=== PATIENT | male | born 1955 | race Hispanic/Latino ===

== ENCOUNTER → 2025-05-01 | Outpatient (CLI) | payer OTHER ==
--- NOTE | 2025-05-01 15:23 | HMCIMG ---
US ART IN & VEIN OUT REASON: HYPERTENSION COMPARISON: None TECHNIQUE: Real sonogram was performed. Renal vascular Doppler evaluation was also performed with spectral analysis and color flow imaging. FINDINGS: Right kidney is 10.3 x 5.8 x 5.1 cm, left 10.1 x 4.7 x 4.0 cm. Kidneys are echogenic with mild cortical thinning. There is no evidence of mass or hydronephrosis. There are 2 stones on the left, 6 mm in the lower pole and 7 mm in a middle pole calyx. There is a 1.9 cm complex cyst lower pole right kidney, this has an internal septation. There are no focal solid masses. CT recommended for further evaluation of this lesion. Peak systolic velocity right renal artery is 218 cm/s, 213 cm/s on the left. Renal aortic ratio is 2 in both kidneys. There are normal-appearing segmental artery waveforms. These findings appear consistent with a mild to moderate renal artery stenosis, less than 60% IMPRESSION: 1. Velocity numbers consistent with a moderate 40-60% stenosis of each renal artery, given peak systolic velocity greater than 200 renal aortic ratio is less than 3.5 2. 2 nonobstructing stones on the left. 3. Complex septated cyst lower pole right kidney, CT recommended for further evaluation.
== END | disposition home or self-care (01) ==
LOC: RAH 04-18 07:35
PROVIDERS: ATTEND Internal Medicine Critical Care Medicine
DX: N28.1 Cyst of kidney, acquired (principal); N20.0 Calculus of kidney; N28.89 Other specified disorders of kidney and ureter; I13.10 Hypertensive heart and chronic kidney disease without heart failure, with stage 1 through stage 4 chronic kidney disease, or unspecified chronic kidney disease; N18.9 Chronic kidney disease, unspecified
CPT/HCPCS: 76770; 93975